=== PATIENT | female | born 1935 | race Caucasian/White ===

== ENCOUNTER 2019-02-09 13:00 | Emergency (ER) | payer MEDICARE, BC ==
[~2019-02-09] VITALS: Ht 157.5 cm; Wt 55.8 kg
[~2019-02-09 13:00] MED LIST: ARMOUR THYROID30 MG ORAL; BACTROBAN CR1 APPLIC TOPIC; KEFLEX500 MG ORAL; LIMBREL PO; PREDNISONE10 MG ORAL
[2019-02-09] MEDS ORDERED: Meclizine 25mg tab ORAL ONE (13:15)
[2019-02-09 13:34] VITALS: BP 117/59
--- NOTE | 2019-02-09 13:34 | NUR ---
ED Nurse Note: RECEIVED REPORT FROM PARVEZ SILVA RN, PT CAME IN DUE TO DIZZINESS AND CHESTHEAVINESS STARTED THIS MORNING. PT STATES SHE STARTED FEELING THIS WHEN SHE WAS IN THE POOL. AAO X4, AMBULATORY WITH UNLABORED BREATHING. VSS.
--- NOTE | 2019-02-09 13:41 | NUR ---
ED Nurse Note: DR LAWRENCE AT THE BED SIDE.
[2019-02-09 13:45] LABS: BASOPHILS % (AUTO) 0.8 % (0.0-2.0); HEMATOCRIT 37.6 % (37.0-47.0); HEMOGLOBIN 12.3 G/DL (12.0-16.0); LYMPHOCYTES % (AUTO) 27.3 % (20.0-45.0); MEAN CORPUSCULAR VOLUME 95 FL (80-99); MONOCYTES % (AUTO) 6.8 % (1.0-10.0); NEUTROPHILS % (AUTO) 63.2 % (45.0-75.0); PLATELET COUNT 240 K/UL (150-450); RED BLOOD COUNT 3.95 M/UL (4.20-5.40); RED CELL DISTRIBUTION WIDTH 12.1 % (11.6-14.8); WHITE BLOOD COUNT 11.2 K/UL (4.8-10.8)
--- NOTE | 2019-02-09 13:50 | NUR ---
ED Nurse Note: PT TAKEN TO CT.
--- NOTE | 2019-02-09 13:54 | Emergency Room Report ---
History of Present Illness General Chief Complaint: Dizziness Source: Patient, Medical Record Present Illness HPI 83-year-old female with history of rheumatoid arthritis on 6 milligrams of prednisone a day presents with lightheadedness and dizziness with associated chest pressure, anxiety that started after swimming in the heat for 45 minutes prior to arrival. She reports that she feels much better now. She denies syncope, leg swelling, recent travel, diaphoresis, abdominal pain, numbness, tingling, weakness, slurred speech, any other symptoms. Patient thinks that her symptoms were attributed to the heat as opposed to exertion. Allergies: Coded Allergies: MEPERIDINE HCL (Verified Allergy, Unknown, 10/18/14) PENICILLINS (Verified Allergy, Unknown, 10/18/14) Patient History Past Medical History: see triage record Reviewed Nursing Documentation: PMH: Agreed; PSxH: Agreed Nursing Documentation-PMH Past Medical History: No History, Except For Hx Cardiac Problems: No - Arthritis Hx Hypertension: No Hx Pacemaker: No Hx Asthma: No Hx COPD: No Hx Diabetes: No Hx Cancer: No Hx Gastrointestinal Problems: No Hx Dialysis: No History Of Psychiatric Problem: No Hx Neurological Problems: No Hx Cerebrovascular Accident: No Hx Seizures: No Review of Systems All Other Systems: negative except mentioned in HPI Physical Exam Vital Signs Date Time Temp Pulse Resp B/P (MAP) Pulse Ox O2 Delivery O2 Flow Rate FiO2 02/09/19 13:07 97.7 87 16 129/80 (96) 96 Room Air Sp02 EP Interpretation: reviewed, normal General Appearance: no apparent distress, alert, non-toxic Head: normocephalic Eyes: bilateral eye normal inspection, bilateral eye PERRL, bilateral eye EOMI ENT: normal ENT inspection, hearing grossly normal, normal pharynx, no angioedema, normal voice, moist mucus membranes Neck: normal inspection, full range of motion, supple, supple/symm/no masses Respiratory: chest non-tender, lungs clear, normal breath sounds, chest symmetrical, palpation of chest normal Cardiovascular #1: normal peripheral pulses, regular rate, rhythm Cardiovascular #2: 2+ radial (R), 2+ radial (L), 2+ dorsalis pedis (R), 2+ dorsalis pedis (L) Gastrointestinal: normal inspection, non tender, soft, no mass, no guarding, no rebound Rectal: deferred Genitourinary: normal inspection, no CVA tenderness Musculoskeletal: back normal, gait/station normal, normal range of motion, non- tender, no calf tenderness, Raz's Sign negative Neurologic: alert, responsive, snuff drier III-XII nml as tested, motor strength/tone normal, sensory intact, speech normal Psychiatric: judgement/insight normal, memory normal, mood/affect normal Lymphatic: no adenopathy Medical Decision Making Diagnostic Impression: Primary Impression: Dizziness ER Course Very transient chest pressure and dizziness, EKG unremarkable, basic labs and chest x-ray pending, will sign out to oncoming physician pending work-up. EKG Diagnostic Results EKG Time: 13:15 EP Interpretation: no stemi Rate: normal Rhythm: NSR ST Segments: no acute changes Rhythm Strip Diag. Results Rhythm Strip Time: 13:25 EP Interpretation: yes Rate: 85 Rhythm: NSR, no PVC's, no ectopy Chest X-Ray Diagnostic Results Chest X-Ray Diagnostic Results : # of Views/Limited/Complete: 1 View Indication: Chest Pain EP Interpretation: Yes Interpretation: no consolidation, no effusion, no pneumothorax, no acute cardiopulmonary disease Impression: No acute disease Electronically Signed by: Lu Lawrence MD Last Vital Signs Date Time Temp Pulse Resp B/P (MAP) Pulse Ox O2 Delivery O2 Flow Rate FiO2 02/09/19 13:34 81 20 Room Air 02/09/19 13:34 98.0 117/59 98 Condition: Stable LU LAWRENCE M.D Feb 09, 2019 13:54
[2019-02-09 13:55] LABS: INR 0.9 (0.9-1.1)
[2019-02-09 14:05] LABS: ANION GAP 12 mmol/L (5-15); BLOOD UREA NITROGEN 23 mg/dL (7-18); CARBON DIOXIDE 23 MMOL/L (21-32); CHLORIDE 109 MMOL/L (98-107); CREATININE 1.2 MG/DL (0.55-1.30); POTASSIUM 3.3 MMOL/L (3.5-5.1); SODIUM 144 MMOL/L (136-145)
[2019-02-09 14:10] LABS: ALANINE AMINOTRANSFERASE 12 U/L (12-78); ALBUMIN/GLOBULIN RATIO 0.8 (1.0-2.7); ALKALINE PHOSPHATASE 51 U/L (46-116); ASPARTATE AMINO TRANSFERASE 15 U/L (15-37); BILIRUBIN,TOTAL 0.3 MG/DL (0.2-1.0)
--- NOTE | 2019-02-09 14:31 | Diagnostic Imaging Report ---
Indication: Dizziness Technique: Contiguous 5 mm thick transaxial imaging of the head obtained in a Siemens Sensation [address] scanner. Soft tissue and bone windows generated. Automatic Exposure Control was utilized. Total Dose length Product (DLP): 1460.[address] Dose Index Volume (CTDIvol): 70.38 mGy Comparison: none Findings: There is a 5 mm cystic focus within the left basal ganglia consistent with an old infarct. There is a low-attenuation involving white matter tracts mostly in the periventricular regions consistent with chronic small vessel disease. There is mild atrophy which is generalized the throughout the cerebrum and cerebellum. There is no acute hemorrhage or mass effect, midline shift identified. In the left occipital region there is a peripheral slightly hypodense mass measuring about 1.4 cm in diameter. The mass is notable for areas of curvilinear calcification. The mass abuts the posterior aspect of the interhemispheric fissure as well as the dura and could be extra-axial such as a meningioma which is probably most likely. Other possibilities such as a low-grade intraparenchymal mass such as a glioma is not excluded. There is no associated edema within the adjacent brain parenchyma. There is partial visualization of the left maxillary sinus which shows abnormal opacification and calcification within the antrum. IMPRESSION: No acute intracranial bleed, mass effect or edema. 1.4 cm left occipital region mass. Favor a meningioma over low-grade partially calcified glioma such as oligodendroglioma. Nonspecific white matter low-attenuation. At this age this is likely due to chronic small vessel disease. Mild generalized atrophy of the brain Chronic left maxillary sinusitis with antral calcification. The CT scanner at [facility] is accredited by the [employer] and the scans are performed using dose optimization techniques as appropriate to a performed exam including Automatic Exposure control.
--- NOTE | 2019-02-09 14:47 | Diagnostic Imaging Report ---
Indication: Dyspnea Comparison: None A single view chest radiograph was obtained. Findings: Cardiomediastinal appearance is within normal limits for age. The lungs are clear. Pulmonary vascularity is appropriate. The diaphragmatic contour is smooth and costophrenic angles are sharp. No pleural effusions are identified. The bones are osteopenic. Impression: No acute findings
--- NOTE | 2019-02-09 14:49 | NUR ---
ED Nurse Note: COLLECTED URINE THEN SENT.
[2019-02-09 15:02] VITALS: BP 135/78
[2019-02-09 15:15] VITALS: BP 121/78
--- NOTE | 2019-02-09 15:15 | NUR ---
ER DISCHARGE NOTE: PT SIGNED AMA FORM AND VERBALIZED UNDERSTANDING OF POTENTIAL COMPLICATIONS. DR DE LENO AWARE. PT STATES SHE WILL SEE HER PCP. COPY OF BLOOD WORKS/EKG/CXR AND CT SCAN HEAD PROVIDED TO PT. ID BAND/IV ACCESS REMOVED. AAO X4, AMBULATORY AND VSS. PT LEFT WITH HER FRIEND.
[2019-02-09 15:33] LABS: BILIRUBIN, URINE NEGATIVE (NEGATIVE); COLOR,URINE PALE YELLOW; GLUCOSE, URINE (UA) NEGATIVE (NEGATIVE); KETONES,URINE NEGATIVE (NEGATIVE); LEUKOCYTE ESTERASE ,URINE 1+ (NEGATIVE); NITRITE,URINE NEGATIVE (NEGATIVE); PH,URINE 5 (4.5-8.0); PROTEIN,URINE NEGATIVE (NEGATIVE); UROBILINOGEN,URINE NORMAL MG/DL (0.0-1.0)
[2019-02-09 15:48] LABS: APPEARANCE,URINE SLIGHTLY CLOUDY
== END 2019-02-09 15:55 | disposition left against medical advice (07) ==
LOC: EMR 13:47 → CANBEDREQ 15:31 → EMR 15:55
DX: R42 Dizziness and giddiness (principal); Z88.0 Allergy status to penicillin; R07.89 Other chest pain; Z88.8 Allergy status to other drugs, medicaments and biological substances; J32.0 Chronic maxillary sinusitis; G31.9 Degenerative disease of nervous system, unspecified
CPT/HCPCS: 36415; 70450; 71045; 80053; 81003; 84484; 85025; 85610; 85730; 93005; 99284; J8499

== ENCOUNTER 2019-05-29 12:19 | Emergency (ER) | payer MEDICARE, BC ==
[~2019-05-29] VITALS: Ht 160 cm; Wt 55.8 kg
[2019-05-29 14:00] VITALS: BP 122/78
[2019-05-29] MEDS ORDERED: IBUPROFEN600 MG ORAL (14:21)
--- NOTE | 2019-05-29 14:21 | Emergency Room Report ---
History of Present Illness General Chief Complaint: Lower Extremity Injury Source: Patient Present Illness HPI 83-year-old female with history of rheumatoid arthritis currently controlled with prednisone here complaining of pain and swelling right lower leg after 2 large water bottles falling on her leg store earlier today. Superficial hematomas noted on anterior dorsal aspect of her right tib-fib patient rating the pain 7 out of 10 without radiation. Denies changes in range of motion, tingling and numbness. Denies head injury, chest pain, shortness of breath, palpitation, no other associated symptoms. Has not taken medication for symptom relief. Patient reports that she usually bleeds a lot however is not on any blood thinners and reports that every time she gets a cut she continues to bleed Allergies: Coded Allergies: MEPERIDINE HCL (Verified Allergy, Unknown, 10/18/14) PENICILLINS (Verified Allergy, Unknown, 10/18/14) Patient History Past Medical History: see triage record Past Surgical History: unable to obtain Pertinent Family History: none Last Menstrual Period: n/a Now: No Immunizations: UTD Reviewed Nursing Documentation: PMH: Agreed; PSxH: Agreed Nursing Documentation-PMH Past Medical History: No History, Except For Hx Cardiac Problems: No - Arthritis Hx Hypertension: No Hx Pacemaker: No Hx Asthma: No Hx COPD: No Hx Diabetes: No Hx Cancer: No Hx Gastrointestinal Problems: No Hx Dialysis: No Hx Neurological Problems: No Hx Cerebrovascular Accident: No Hx Seizures: No Review of Systems All Other Systems: negative except mentioned in HPI Physical Exam Vital Signs Date Time Temp Pulse Resp B/P (MAP) Pulse Ox O2 Delivery O2 Flow Rate FiO2 05/29/19 12:31 98.4 95 18 122/78 (93) 94 Room Air Sp02 EP Interpretation: reviewed, normal General Appearance: no apparent distress, alert, GCS 15, non-toxic Head: normocephalic, atraumatic Eyes: bilateral eye normal inspection, bilateral eye PERRL ENT: hearing grossly normal, normal pharynx, no angioedema, normal voice Neck: full range of motion, supple/symm/no masses Respiratory: chest non-tender, lungs clear, normal breath sounds, no rhonchi, no wheezing, speaking full sentences Cardiovascular #1: regular rate, rhythm, no edema, no murmur, normal capillary refill Cardiovascular #2: 2+ dorsalis pedis (R), 2+ dorsalis pedis (L) Gastrointestinal: normal bowel sounds, non tender, soft, non-distended, no guarding, no rebound Genitourinary: no CVA tenderness Musculoskeletal: back normal, digits/nails normal, gait/station normal, normal range of motion, non-tender, no calf tenderness, pelvis stable, other - Hematoma noted dorsal side of anterior tib-fib Neurologic: alert, oriented x3, responsive, motor strength/tone normal, sensory intact, speech normal Psychiatric: judgement/insight normal, memory normal, mood/affect normal, no suicidal/homicidal ideation Skin: palpation normal, other - Superficial hematoma dorsal aspect of anterior tib-fib on right side Lymphatic: normal inspection, no adenopathy Medical Decision Making PA Attestation Diagnosis and treatment plans were reviewed and discussed with my supervising physician Dr. Angel Diagnostic Impression: Primary Impression: Contusion of right lower leg ER Course 83-year-old female with history of rheumatoid arthritis currently controlled with prednisone here complaining of pain and swelling right lower leg after 2 large water bottles falling on her leg store earlier today. Superficial hematomas noted on anterior dorsal aspect of her right tib-fib patient rating the pain 7 out of 10 without radiation. Denies changes in range of motion, tingling and numbness. Denies head injury, chest pain, shortness of breath, palpitation, no other associated symptoms. Has not taken medication for symptom relief. Patient reports that she usually bleeds a lot however is not on any blood thinners and reports that every time she gets a cut she continues to bleed Ddx considered but are not limited to: Tib-fib fracture, contusion, sprain Vital signs: are WNL, pt. is afebrile H&PE are most consistent with: Tib-fib contusion, incidental finding of calcification right lower extremity that can be possible to breaking of vasculatures ORDERS: Right tib-fib x-ray, Motrin ED INTERVENTIONS: None required at this time. DISCHARGE: At this time pt. is stable for d/c to home. Will provide printed patient care instructions, and any necessary prescriptions. Care plan and follow up instructions have been discussed with the patient prior to discharge. Patient to follow-up with her primary care affected area elevated, if you start bleeding return to the emergency room at this time the hematoma is very superficial and secondary to contusion and will dissolve on his own should not be irritated. Patient also to follow-up with mri supervisor regarding prednisone intake as well as further assessment. Also reports a mri supervisor and primary care physician regarding calcification of the incidental finding of right lower extremity. Other X-Ray Diagnostic Results Other X-Ray Diagnostic Results : X-Ray ordered: right tib fib # of Views/Limited Vs Complete: 2 View Indication: Pain EP Interpretation: Yes PA Xray: Interpretation reviewed, by supervising MD, and agrees with findings. Interpretation: no dislocation, no fractures, other - Soft tissue swelling noted secondary to contusion Impression: Other - Contusion Electronically Signed by: Madison Prater PA-C Last Vital Signs Date Time Temp Pulse Resp B/P (MAP) Pulse Ox O2 Delivery O2 Flow Rate FiO2 05/29/19 12:31 98.4 95 18 122/78 (93) 94 Room Air Disposition: HOME, SELF-CARE Condition: Stable Scripts Ibuprofen* (MOTRIN*) 600 Mg Tablet 600 MG ORAL Q8H PRN for For Pain, #30 TAB 0 Refills Prov: Madison Lam 05/29/19 Patient Instructions: Contusion Additional Instructions: Follow-up with your primary care provider regarding the contusion, the hematoma is very superficial and does not need any further emergent attention. Keep the affected area elevated and there is some calcification noted that can be related to the blood vessel however do follow-up with your primary care followed with possible vascular studies. If worsening symptoms return to the emergency room. Madison Lam May 29, 2019 14:21
--- NOTE | 2019-05-29 14:47 | Diagnostic Imaging Report ---
Indication: right leg pain Comparison: None Findings: Two views of the right tibia and fibula were obtained. No acute fracture, malalignment, or periosteal reaction are identified. Bones are osteopenic. Soft tissues are mildly prominent in the pretibial region and some calcific foci noted in the subcutaneous fat mostly related to veins. Impression: Soft tissue swelling nonspecific.
== END 2019-05-29 14:30 | disposition home or self-care (01) ==
LOC: EMR 14:19
DX: S80.11XA Contusion of right lower leg, initial encounter (principal); X58.XXXA Exposure to other specified factors, initial encounter; Y93.9 Activity, unspecified; Y92.9 Unspecified place or not applicable; Z88.0 Allergy status to penicillin
CPT/HCPCS: 99283

== ENCOUNTER 2019-07-24 11:23 | Outpatient (RCR) | payer MEDICARE, BC ==
[~2019-07-24 11:23] MED LIST changes: +IBUPROFEN600 MG ORAL
== END 2019-08-18 | disposition home or self-care (01) ==
LOC: WCC 11:23
DX: L97.812 Non-pressure chronic ulcer of other part of right lower leg with fat layer exposed (principal); I87.311 Chronic venous hypertension (idiopathic) with ulcer of right lower extremity; Z88.0 Allergy status to penicillin; Z88.8 Allergy status to other drugs, medicaments and biological substances; M06.9 Rheumatoid arthritis, unspecified
CPT/HCPCS: G0463

== ENCOUNTER 2020-01-16 00:13 | Emergency (ER) | payer MEDICARE, BC ==
[~2020-01-16] VITALS: Ht 154.9 cm; Wt 55.8 kg
--- NOTE | 2020-01-16 00:20 | NUR ---
ED Nurse Note: Pt brought into ED by friend for c/o skin tear to L leg/brennan area. Pt states she was sitting down at home and her R leg fell onto her L leg causing her R shoe to scrape down her leg. Skin tear to L brennan noted with active bleeding and significant bruising. Pt reports L leg pain as well. Pt is aaox4, breathing is normal and unlabored. No cough, SOB or fever. Pressure applied to wound, ERMD bedside. Will continue to monitor. Pt denies taking any blood thinners but reports hx of excessive bleeding.
[2020-01-16] MEDS ORDERED: Surgicel 4in x 8in TOPIC ONE (00:45)
--- NOTE | 2020-01-16 01:00 | NUR ---
ED Nurse Note: ERMD bedside.
--- NOTE | 2020-01-16 01:20 | NUR ---
ED Nurse Note: Bleeding controlled, no longer actively bleeding. spray technician applied dressing/bandage to wound.
[2020-01-16] MEDS ORDERED: BACITRACIN15 GM TOPIC (01:42)
[2020-01-16] MEDS ORDERED: CEPHALEXIN500 MG ORAL (01:42)
[2020-01-16 01:50] VITALS: BP 127/80
--- NOTE | 2020-01-16 01:50 | NUR ---
ER DISCHARGE NOTE: Patient is cleared to be discharged per ERMD, pt is aox4, on room air, with stable vital signs. pt was given dc and prescription instructions, pt was able to verbalize understanding, pt id band and iv site removed without complications. pt is able to ambulate with steady gait. pt took all belongings.
--- NOTE | 2020-01-16 03:03 | Emergency Room Report ---
History of Present Illness General Chief Complaint: Lower Extremity Injury Source: Patient Present Illness HPI 84-year-old female presents with bleeding to the left leg. States that she accidentally brought down her right leg with a shoe onto her left brennan. States that her skin tears easily and she bruises easily causing the injury tonight. Denies pain. Tetanus is up-to-date. Denies taking blood thinners. No other aggravating relieving factors. Denies any other associated symptoms Allergies: Coded Allergies: MEPERIDINE HCL (Verified Allergy, Unknown, 10/18/14) PENICILLINS (Verified Allergy, Unknown, 10/18/14) COVID-19 Screening Contact w/high risk pt: No Recent Travel to affected area: No Experienced COVID-19 symptoms?: No COVID-19 Testing performed FLIGHT SECURITY SPECIALIST: No Patient History Past Medical History: psych hx, other - RA Past Surgical History: none Pertinent Family History: none Social History: Denies: smoking, alcohol use, drug use Last Menstrual Period: na Now: No Immunizations: UTD Reviewed Nursing Documentation: PMH: Agreed; PSxH: Agreed Nursing Documentation-PMH Hx Cardiac Problems: No - Arthritis Hx Hypertension: No Hx Pacemaker: No Hx Asthma: No Hx COPD: No Hx Diabetes: No Hx Cancer: No Hx Gastrointestinal Problems: No Hx Dialysis: No History Of Psychiatric Problem: Yes - anxiety Hx Neurological Problems: Yes - RA Hx Cerebrovascular Accident: No Hx Seizures: No Review of Systems All Other Systems: negative except mentioned in HPI Physical Exam Vital Signs Date Time Temp Pulse Resp B/P (MAP) Pulse Ox O2 Delivery O2 Flow Rate FiO2 6/30/20 00:15 98.8 86 22 120/65 (83) 100 Room Air Sp02 EP Interpretation: reviewed, normal General Appearance: no apparent distress, alert, GCS 15, non-toxic Head: normocephalic Eyes: bilateral eye normal inspection, bilateral eye PERRL ENT: normal ENT inspection Neck: normal inspection Respiratory: normal inspection Cardiovascular #1: normal inspection Gastrointestinal: normal inspection Rectal: deferred Genitourinary: no CVA tenderness Musculoskeletal: back normal Neurologic: alert, motor strength/tone normal, oriented x3, sensory intact, responsive, speech normal Psychiatric: normal inspection Skin: other - 5cm skin tear to L anterior brennan. bleeding noted Lymphatic: normal inspection Medical Decision Making Diagnostic Impression: Primary Impression: Skin tear ER Course Hospital Course 84 yo F presents with skin tear to L brennan Clinical course Patient placed on stretcher. After initial history physical exam reveals an elderly female in no acute distress. On exam there is a approximately 5 cm skin tear to the left anterior brennan. There is bleeding noted in the tissues below. There is significant ecchymosis in the surrounding skin. Pressure applied with gauze and Surgicel but bleeding persisted. TXA soaked gauze and applied to wound with bleeding controlled. Wound is not amenable to suturing or closure as the skin is very thin Wound irrigated. Xeroform, gauze, Kerlix applied. Discussed findings with patient. Will discharge home. I will provide wound care referrals. Patient has been seen here many times for wound care with similar types of injuries Diagnosis - skin tear Stable and discharged to home with prescription for Keflex, bacitracin. wound Care instructions given. Followup with PMD. Return to ED if any signs of infection develop Last Vital Signs Date Time Temp Pulse Resp B/P (MAP) Pulse Ox O2 Delivery O2 Flow Rate FiO2 01/16/20 00:15 98.8 86 22 120/65 (83) 100 Room Air Status: improved Disposition: HOME, SELF-CARE Condition: Stable Scripts Bacitracin (Bacitracin) 28.4 Gm Oint...g. 1 APPLIC TOPIC THREE TIMES A DAY, #28.4 GM Prov: Frederic Akers MD 01/16/20 Cephalexin* (KEFLEX*) 500 Mg Capsule 500 MG ORAL EVERY 6 HOURS for 7 Days, CAP Prov: Frederic Akers MD 01/16/20 Referrals: Raheem Dela Cruz Babak MD NON PHYSICIAN (PCP) Patient Instructions: Skin Tear Care, [id number] Frederic Akers MD Jan 16, 2020 03:03
== END 2020-01-16 01:50 | disposition home or self-care (01) ==
LOC: EMR 00:40
DX: S81.812A Laceration without foreign body, left lower leg, initial encounter (principal); X58.XXXA Exposure to other specified factors, initial encounter; Y92.9 Unspecified place or not applicable; Z88.0 Allergy status to penicillin; M06.9 Rheumatoid arthritis, unspecified; F41.9 Anxiety disorder, unspecified
CPT/HCPCS: 99282

== ENCOUNTER 2020-01-22 11:52 | Outpatient (RCR) | payer MEDICARE, BC ==
[~2020-01-22] VITALS: Ht 160 cm; Wt 55.8 kg
[~2020-01-22 11:52] MED LIST changes: +BACITRACIN15 GM TOPIC; +CEPHALEXIN500 MG ORAL
[2020-02-07] MEDS ORDERED: Lidocaine 1% MPF 10mg/ml 5ml INJ ONE (14:15)
[2020-02-14] MEDS ORDERED: Lidocaine 2% MPF 5ml Vial INJ ONE (15:00)
== END 2020-02-16 | disposition home or self-care (01) ==
LOC: WCC 11:52
DX: L97.825 Non-pressure chronic ulcer of other part of left lower leg with muscle involvement without evidence of necrosis (principal); L97.322 Non-pressure chronic ulcer of left ankle with fat layer exposed; L97.826 Non-pressure chronic ulcer of other part of left lower leg with bone involvement without evidence of necrosis; M06.9 Rheumatoid arthritis, unspecified; F03.90 Unspecified dementia, unspecified severity, without behavioral disturbance, psychotic disturbance, mood disturbance, and anxiety; Z88.0 Allergy status to penicillin
CPT/HCPCS: 11043; 11044; 11046; 11047

== ENCOUNTER 2020-02-19 14:09 | Outpatient (RCR) | payer MEDICARE, BC ==
[~2020-02-19] VITALS: Ht 160 cm; Wt 55.8 kg
[2020-02-22] MEDS ORDERED: Lidocaine 2% 20mg/ml/EPI 0.01mg/ml 20ml IV ONE (11:00)
[2020-02-29] MEDS ORDERED: Lidocaine 2% MPF 5ml Vial INJ ONE (17:00)
== END 2020-03-18 | disposition home or self-care (01) ==
LOC: WCC 14:09
DX: L97.825 Non-pressure chronic ulcer of other part of left lower leg with muscle involvement without evidence of necrosis (principal); L97.322 Non-pressure chronic ulcer of left ankle with fat layer exposed; L97.826 Non-pressure chronic ulcer of other part of left lower leg with bone involvement without evidence of necrosis; Z88.0 Allergy status to penicillin; Z88.8 Allergy status to other drugs, medicaments and biological substances; M06.9 Rheumatoid arthritis, unspecified; F03.90 Unspecified dementia, unspecified severity, without behavioral disturbance, psychotic disturbance, mood disturbance, and anxiety
CPT/HCPCS: 11043; 11044; 11046; 11047

== ENCOUNTER → 2020-02-19 | Outpatient (CLI) | payer MEDICARE, BC ==
--- NOTE | 2020-02-19 17:06 | Diagnostic Imaging Report ---
Indication: Leg pain. Nonhealing wounds. Peripheral artery disease. Technique: Arterial Duplex Scan Bilat Leg Comparison: None Findings: Right lower extremity: Atherosclerotic calcifications noted throughout. There are chunky calcifications in the right external iliac artery. Right common femoral artery demonstrates moderate atherosclerotic calcification with associated luminal narrowing. The right KNIFE GRINDER however is patent with a triphasic waveform. Atherosclerotic calcifications are noted at the origin of the right superficial femoral artery associated mild luminal narrowing but no focal high-grade stenosis. The right superficial femoral artery is patent with a triphasic waveform. Imaged portions of the profundus femoris artery are patent. Mid and distal portions of the right superficial femoral artery are patent with biphasic waveforms. Popliteal artery is patent with a biphasic waveform. Visualized portions of the tibial vessels are patent. Dorsalis pedis artery is visualized and patent. Left lower extremity: Atherosclerotic calcifications are noted. Left external iliac artery is patent with a triphasic waveform. Left common femoral artery is patent with a triphasic waveform. No focal significant stenosis is demonstrated. Imaged portions of the fundus demonstrates artery appear patent. Imaged portions of the left superficial femoral artery are patent with biphasic waveforms. Imaged portions of the popliteal artery are patent with biphasic waveforms. The visualized tibial arteries are patent. There is focal significant stenosis in the dorsalis pedis artery. IMPRESSION: Arteries of the bilateral lower extremities are patent. No arterial occlusion is demonstrated. Atherosclerotic calcifications resulting in associated areas of mild narrowing. Suspected moderate stenosis of the left dorsalis pedis artery. More sensitive evaluation with CT angiogram of the bilateral lower extremity runoff recommended as clinically indicated.
== END | disposition home or self-care (01) ==
LOC: VAS 13:15
DX: M79.604 Pain in right leg (principal); M79.605 Pain in left leg; I73.9 Peripheral vascular disease, unspecified; S81.802A Unspecified open wound, left lower leg, initial encounter; S81.801A Unspecified open wound, right lower leg, initial encounter; X58.XXXA Exposure to other specified factors, initial encounter; Y92.9 Unspecified place or not applicable
CPT/HCPCS: 93925

== ENCOUNTER 2020-04-01 14:07 | Outpatient (RCR) | payer MEDICARE, BC | END 2020-04-17 | disposition home or self-care (01) | LOC: WCC 14:07 | DX: L97.825 Non-pressure chronic ulcer of other part of left lower leg with muscle involvement without evidence of necrosis (principal); L97.322 Non-pressure chronic ulcer of left ankle with fat layer exposed; L97.826 Non-pressure chronic ulcer of other part of left lower leg with bone involvement without evidence of necrosis; I87.312 Chronic venous hypertension (idiopathic) with ulcer of left lower extremity; F03.90 Unspecified dementia, unspecified severity, without behavioral disturbance, psychotic disturbance, mood disturbance, and anxiety; M06.9 Rheumatoid arthritis, unspecified | CPT/HCPCS: 11043; 11046; 15271; Q4106; Q4101 ==

== ENCOUNTER 2020-04-22 14:20 | Outpatient (RCR) | payer MEDICARE, BC ==
[~2020-04-22] VITALS: Ht 160 cm; Wt 55.8 kg
== END 2020-05-18 | disposition home or self-care (01) ==
LOC: WCC 14:20
DX: L97.825 Non-pressure chronic ulcer of other part of left lower leg with muscle involvement without evidence of necrosis (principal); L97.322 Non-pressure chronic ulcer of left ankle with fat layer exposed; L97.826 Non-pressure chronic ulcer of other part of left lower leg with bone involvement without evidence of necrosis; I87.312 Chronic venous hypertension (idiopathic) with ulcer of left lower extremity; L97.822 Non-pressure chronic ulcer of other part of left lower leg with fat layer exposed; M06.9 Rheumatoid arthritis, unspecified; F03.90 Unspecified dementia, unspecified severity, without behavioral disturbance, psychotic disturbance, mood disturbance, and anxiety; Z88.0 Allergy status to penicillin
CPT/HCPCS: 11043; 15271; 29580; Q4103; Q4106; Q4101

== ENCOUNTER 2020-05-20 08:59 | Outpatient (RCR) | payer MEDICARE, BC | END 2020-06-17 | disposition home or self-care (01) | LOC: WCC 08:59 | DX: L97.825 Non-pressure chronic ulcer of other part of left lower leg with muscle involvement without evidence of necrosis (principal); L97.322 Non-pressure chronic ulcer of left ankle with fat layer exposed; L97.826 Non-pressure chronic ulcer of other part of left lower leg with bone involvement without evidence of necrosis; I87.312 Chronic venous hypertension (idiopathic) with ulcer of left lower extremity; L97.822 Non-pressure chronic ulcer of other part of left lower leg with fat layer exposed; M06.9 Rheumatoid arthritis, unspecified; F03.90 Unspecified dementia, unspecified severity, without behavioral disturbance, psychotic disturbance, mood disturbance, and anxiety | CPT/HCPCS: 11042; 15271; 29580; Q4133 ==

== ENCOUNTER 2020-06-24 12:01 | Outpatient (RCR) | payer MEDICARE, BC | END 2020-07-18 | disposition home or self-care (01) | LOC: WCC 12:01 | DX: L97.822 Non-pressure chronic ulcer of other part of left lower leg with fat layer exposed (principal); I87.312 Chronic venous hypertension (idiopathic) with ulcer of left lower extremity; L97.322 Non-pressure chronic ulcer of left ankle with fat layer exposed; Z88.0 Allergy status to penicillin; Z88.8 Allergy status to other drugs, medicaments and biological substances; M06.9 Rheumatoid arthritis, unspecified; F03.90 Unspecified dementia, unspecified severity, without behavioral disturbance, psychotic disturbance, mood disturbance, and anxiety | CPT/HCPCS: G0463 ==